=== PATIENT | male | born 1990 | race Caucasian/White ===

== ENCOUNTER 2019-07-16 01:08 | Emergency (ER) | payer BC ==
[~2019-07-16] VITALS: Ht 200.7 cm; Wt 81.6 kg
[2019-07-16 01:19] VITALS: BP 123/70
--- NOTE | 2019-07-16 01:30 | NUR ---
BS-42. ER MADE AWARE. FOOD PROVIDED TO PT PER ER ORDER. ORANGE JUICE 240ML'S AND TUNA SANDWICH GIVEN TO PT.
[2019-07-16 01:55] LABS: BASOPHILS % (AUTO) 0.3 % (0.0-2.0); EOSINOPHILS % (AUTO) 0.3 % (0.0-6.0); HEMATOCRIT 42 % (39-51); HEMOGLOBIN 14.1 g/dL (13.5-17.5); LYMPHOCYTES % (AUTO) 21.3 % (20.0-44.0); MEAN CORPUSCULAR HGB CONC 34 g/dl (31.0-36.0); MEAN CORPUSCULAR VOLUME 91 fL (80-96); MONOCYTES # (AUTO) 1.4 /CMM (0.1-1.30); NEUTROPHILS # (AUTO) 9.4 /CMM (1.8-8.9); NEUTROPHILS % (AUTO) 68.1 % (43.0-81.0); PLATELET COUNT (AUTO) 378 /CMM (150-450); RED BLOOD CELL COUNT(AUTO) 4.63 MIL/uL (4.5-6.0); WHITE BLOOD COUNT (AUTO) 13.9 K/uL (4.3-11.0)
[2019-07-16 02:07] LABS: CALCIUM, SERUM 8.5 mg/dL (8.5-10.1)
--- NOTE | 2019-07-16 02:15 | NUR ---
BG 122. AWARE.
[2019-07-16] MEDS ORDERED: POTASSIUM CHLORIDE 20 MEQ TAB.PRT.SR PO ONE (02:16)
[2019-07-16] MEDS ORDERED: POTASSIUM CHLORIDE 10 MEQ TABLET.SA ONE (02:18)
[2019-07-16] MEDS: POTASSIUM CHLORIDE 20 MEQ TAB.PRT.SR PO ONE ×3 (02:25→02:37)
== END 2019-07-16 03:13 | disposition home or self-care (01) ==
LOC: ER 01:12
DX: E11.649 Type 2 diabetes mellitus with hypoglycemia without coma (principal); F17.200 Nicotine dependence, unspecified, uncomplicated
CPT/HCPCS: 36415; 80048-TC; 82962-TC; 85025-TC

== ENCOUNTER 2019-07-17 22:35 | Emergency (ER) | payer BC ==
[~2019-07-17] VITALS: Ht 200.7 cm; Wt 81.6 kg
--- NOTE | 2019-07-17 22:52 | NUR ---
PT BIBSELF. AAOX4. AMBULATORY. PT C/O FEELING WEAK AND MALNOURISHED. PER PATIENT "I LOST LIKE 50LBS IN THE LAST TWO WEEKS." BREATHING EVEN AND UNLABORED. PT DENIES PAIN. NO ACUTE DISTRESS NOTED.
[2019-07-17 23:31] LABS: CALCIUM, SERUM 8.7 mg/dL (8.5-10.1); POTASSIUM 4.1 mmol/L (3.5-5.1)
[2019-07-17 23:46] VITALS: BP 128/86
== END 2019-07-17 23:49 | disposition home or self-care (01) ==
LOC: ER 22:36
DX: T73.0XXA Starvation, initial encounter (principal); E86.0 Dehydration; E11.9 Type 2 diabetes mellitus without complications; F17.200 Nicotine dependence, unspecified, uncomplicated; Z59.0 Homelessness; X58.XXXA Exposure to other specified factors, initial encounter
CPT/HCPCS: 36415; 80048-TC; 82962-TC

== ENCOUNTER 2019-07-19 19:53 | Emergency (ER) | payer BC ==
[~2019-07-19] VITALS: Ht 200.7 cm; Wt 86.2 kg
--- NOTE | 2019-07-19 20:22 | NUR ---
BIB SELF FOR PRODUCTIVE COUGH STARTED THIS MORNING, TO ER BED 12, HOOKED TO MONITOR, AWAITING MD CAMACHO.
--- NOTE | 2019-07-19 20:30 | NUR ---
CRISTIANE HUITRON AT BEDSIDE
--- NOTE | 2019-07-19 21:46 | NUR ---
Patient given written and verbal discharge instructions. Patient refused to sign homeless waiver form. Patient does not want to leave emergency dept. Patient is ambulatory with steady gait. Refuses offer of longterm placement. Patient given list of available shelters in surrounding area. Patient states "I ill hang-out here and if you want, you can call the administrative support assoc for trespassing'. Called security for assistance.
--- NOTE | 2019-07-19 22:03 | NUR ---
CALLED [employer] FOR THIS PATIENT, DISPATCHING OFFICERS
--- NOTE | 2019-07-19 22:25 | NUR ---
[employer] AT BEDSIDE TO ESCORT PT OUT OF HOSPITAL PER PT REQUEST. PT AMBULATORY WITH STEADY GAIT. NO ACUTE DISTRESS NOTED AT THIS TIME. MEDCIALLY CLEARED FOR DISCHARGE, LEFT WITH DISCHARGE INSTRUCTIONS.
[2019-07-19 22:27] VITALS: BP 124/67
--- NOTE | 2019-07-19 22:27 | NUR ---
JUSTIN ASSISTED PATIENT OUT OF EMERGENCY DEPARTMENT. PATIENT LEFT CALMLY.
== END 2019-07-19 22:29 | disposition home or self-care (01) ==
LOC: ER 20:00
DX: J06.9 Acute upper respiratory infection, unspecified (principal); F17.200 Nicotine dependence, unspecified, uncomplicated; E11.9 Type 2 diabetes mellitus without complications; Z59.0 Homelessness
CPT/HCPCS: 71045-TC

== ENCOUNTER 2020-03-19 10:40 | Inpatient (IN) | payer BC, OTHER ==
[~2020-03-19] VITALS: Ht 188 cm; Wt 74.8 kg
--- NOTE | 2020-03-19 10:40 | NUR ---
pt bib self c/o Nausea and vomiting x 3 days, pt is aaox4, not in respiratory distress, hooked to monitor, kept rested and comfortable, will continue to monitor.
--- NOTE | 2020-03-19 11:00 | NUR ---
iv line established blood drawn and sent to lab.
--- NOTE | 2020-03-19 11:10 | NUR ---
at bedside for eval.
[2020-03-19] MEDS ORDERED: MAG HYDROX/AL HYDROX/SIMETH 30 ML UDC ONE (11:17)
[2020-03-19] MEDS ORDERED: KETOROLAC TROMETHAMINE 15 MG/ML VIAL ONE (11:17)
[2020-03-19] MEDS ORDERED: LIDOCAINE VISCOUS 2% UD 15 ML UDC ONE (11:17)
[2020-03-19] MEDS ORDERED: ONDANSETRON HCL/PF 4 MG/2 ML VIAL ONE ×2 (11:17→12:11)
[2020-03-19 11:18] LABS: BASOPHILS # (AUTO) 0.2 /CMM (0.0-0.2); BASOPHILS % (AUTO) 0.9 % (0.0-2.0); HEMATOCRIT 56 % (39-51); HEMOGLOBIN 18.9 g/dL (13.5-17.5); LYMPHOCYTES # (AUTO) 1.7 /CMM (0.8-4.8); LYMPHOCYTES % (AUTO) 6.8 % (20.0-44.0); MEAN CORPUSCULAR HGB CONC 34 g/dl (31.0-36.0); MEAN CORPUSCULAR VOLUME 90 fL (80-96); MONOCYTES # (AUTO) 1.1 /CMM (0.1-1.30); MONOCYTES % (AUTO) 4.5 % (2.0-12.0); NEUTROPHILS # (AUTO) 21.4 /CMM (1.8-8.9); NEUTROPHILS % (AUTO) 87.8 % (43.0-81.0); PLATELET COUNT (AUTO) 486 /CMM (150-450); RED BLOOD CELL COUNT(AUTO) 6.29 MIL/uL (4.5-6.0); WHITE BLOOD COUNT (AUTO) 24.4 K/uL (4.3-11.0)
--- NOTE | 2020-03-19 11:24 | NUR ---
urinal given but unabale to provide urine specimen this time.
[2020-03-19] MEDS ORDERED: KETOROLAC TROMETHAMINE INJ 30 MG/ML VIAL IV ONE (11:30)
[2020-03-19] MEDS ORDERED: ONDANSETRON HCL/PF 4 MG/2 ML VIAL IVP ONE (11:30)
[2020-03-19] MEDS ORDERED: LIDOCAINE VISCOUS 2% UD 15 ML UDC MM ONE (11:30)
[2020-03-19] MEDS ORDERED: MAG HYDROX/AL HYDROX/SIMETH 30 ML UDC PO ONE (11:30)
[2020-03-19] MEDS ORDERED: IV NS 0.9% 1,000 ML BAG IV ONE ×2 (11:30→12:00)
[2020-03-19 11:32] LABS: ALBUMIN 4.7 g/dL (3.4-5.0); BILIRUBIN,DIRECT 0.2 mg/dL (0.0-0.2); BILIRUBIN,TOTAL 1.1 mg/dL (0.2-1.0); CALCIUM, SERUM 10.4 mg/dL (8.5-10.1); CREATININE 2.2 mg/dL (0.6-1.3); TOTAL PROTEIN, SERUM 8.6 g/dL (6.4-8.2)
[2020-03-19] MEDS ORDERED: INSULIN ASPART/LISPRO 100 UNIT/ML CARTRIDGE SQ STA (11:38)
[2020-03-19] MEDS ORDERED: INSU100I4 SQ (12:10)
--- NOTE | 2020-03-19 12:19 | NUR ---
CALLED [facility], PAGED DEISY PENALOZA
[2020-03-19] MEDS ORDERED: ONDANSETRON HCL/PF 4 MG/2 ML VIAL IV ONE (12:30)
--- NOTE | 2020-03-19 13:01 | NUR ---
report given to ALEX tejada for kofi.
--- NOTE | 2020-03-19 13:15 | NUR ---
MS/RN NOTES Received patient in bed from ED nurse, A&O x3, stating complaints of nausea. Patient requests for IV fluids and an antiemetic medication. Notified Dr. Singh, states he will put in orders. Patient refused to be assessed at this time, patient states he just wants to rest. Fall precautions maintained. Will continue to monitor for any changes in condition.
[2020-03-19] MEDS ORDERED: ACETAMINOPHEN 325 MG TABLET PO PRN (14:00)
[2020-03-19] MEDS ORDERED: HYDROCODONE/APAP 5/325MG 1 EACH TABLET PO PRN (14:00)
[2020-03-19] MEDS ORDERED: Z GUARD REMEDY 2 OZ OINT TP PRN (14:00)
[2020-03-19] MEDS ORDERED: DEXTROSE 50%-WATER 50 ML DISP.SYRIN IV PRN (14:00)
[2020-03-19] MEDS ORDERED: ZOLPIDEM TARTRATE 5 MG TABLET PO PRN (14:00)
[2020-03-19] MEDS: ENOXAPARIN SODIUM 40 MG/0.4 ML DISP.SYRIN SQ SCH (14:48)
[2020-03-19] MEDS: BLOOD SUGAR DIAGNOSTIC 1 EACH STRIP IN SCH ×3 (14:48→22:06)
[2020-03-19] MEDS: INSULIN REGULAR, HUMAN 100 UNIT/ML 3 ML VIAL SQ PRN ×2 (14:51→22:12)
[2020-03-19] MEDS: IV NS 0.9% 1,000 ML IV PRN ×2 (14:52→21:35)
[2020-03-19 16:00] VITALS: BP 128/69
--- NOTE | 2020-03-19 16:58 | NUR ---
MS/RN NOTES Notified Dr. Singh of duplicate diet orders of CCHO and full liquids. Patient has not complained of nausea or vomiting since transfer from ED. Doctor said to continue CCHO and discontinue full liquids.
--- NOTE | 2020-03-19 18:00 | NUR ---
MS/RN NOTES Patient refused to answer most of admission questions, also does not want to have me take pictures of skin. Patient states "my skin is okay." Patient had 1 episode of clear emesis, small amount noted. Reglan given at 1814. Will continue to monitor patient for any changes in condition.
[2020-03-19] MEDS: ONDANSETRON HCL/PF 4 MG/2 ML VIAL IVP PRN ×2 (18:14→22:14)
--- NOTE | 2020-03-19 18:42 | NUR ---
MS/RN NOTES Patient in bed, A&O x 4. Still feeling nauseous. Patient had 1 episode of clear emesis this afternoon, small amount noted. Given zofran at 1814. Refused to take photos or answer questions regarding admission admission, patient just wants to "rest and left alone." IV access noted on the R AC #18, patent and intact, infusing NS @125 ml/hr. Breathing even and non-labored on RA. No respiratory or cardiac distress noted. Sensation from all peripheral extremities intact. Fall precautions maintained. Will endorse to night shift supervisor nurse.
--- NOTE | 2020-03-19 19:10 | NUR ---
RN MS OPENING NOTES RECEIVED PATIENT IN BED SLEEPING EASILY AROUSABLE, RESPIRATIONS EVEN AND UNLABORED WITH EQUAL RISE AND FALL OF CHEST, DENIES ANY PAIN OR DISCOMFORT AT THIS TIME, IV SITE TO RIGHT AC #18G INTACT AND PATENT, NO REDNESS, NO INFILTRATION PRESENT, ORIENTED TO STAFF AND CALL LIGHT AND KEPT WITHIN REACH, ALL NEEDS ATTENDED AT THIS TIME, WILL CONTINUE TO MONITOR AND ATTEND TO NEEDS, REMAINS COMFORTABLE.
[2020-03-19 20:00] VITALS: BP 129/60
[2020-03-19 20:20] VITALS: BP 129/60
[2020-03-19] MEDS: INSULIN GLARGINE, 100 UNIT/ML CARTRIDGE SQ SCH (22:08)
--- NOTE | 2020-03-19 22:14 | NUR ---
rn ms notes patient is nauseous requested for zofran, prn given as ordered, will continue to monitor for effectiveness.
--- NOTE | 2020-03-19 23:30 | NUR ---
rn ms notes patient complained of pain 6/10 generalized pain norco offered patient agreed. norco prn given as ordered will continue to monitor for effectiveness.
--- NOTE | 2020-03-19 23:39 | NUR ---
rn ms notes per patient vomited norco tablet, states "unable to hold anything in no more pills." hospitalist made aware requested for iv pain medication , no new orders received, patient made aware.
[2020-03-20] MEDS: BLOOD SUGAR DIAGNOSTIC 1 EACH STRIP IN SCH ×6 (01:37→21:23)
[2020-03-20] MEDS: INSULIN REGULAR, HUMAN 100 UNIT/ML 3 ML VIAL SQ PRN ×4 (01:40→21:23)
[2020-03-20] MEDS: ONDANSETRON HCL/PF 4 MG/2 ML VIAL IVP PRN ×2 (05:10→15:15)
--- NOTE | 2020-03-20 05:10 | NUR ---
rn ms notes patient is nauseous requested for zofran, prn given as ordered, will continue to monitor for effectiveness.
[2020-03-20] MEDS: IV NS 0.9% 1,000 ML IV PRN (05:14)
--- NOTE | 2020-03-20 06:36 | NUR ---
RN MS CLOSING NOTES PATIENT IN BED SLEEPING EASILY AROUSABLE, RESPIRATIONS EVEN AND UNLABORED WITH EQUAL RISE AND FALL OF CHEST, DENIES ANY PAIN OR DISCOMFORT AT THIS TIME, IV SITE TO RIGHT AC #18G INTACT AND PATENT, NO REDNESS, NO INFILTRATION PRESENT, IVF RUNNING ORDERED, ZOFRAN PRN EFFECTIVE, CALL LIGHT KEPT WITHIN REACH, ALL NEEDS ATTENDED AT THIS TIME, WILL CONTINUE TO MONITOR AND ATTEND TO NEEDS, REMAINS COMFORTABLE AND WILL ENDORSE TO NEXT SHIFT, HAD FLUIDS AND ICE CHIPS THROUGHOUT THE SHIFT.
[2020-03-20 06:45] LABS: BASOPHILS % (AUTO) 0.2 % (0.0-2.0); EOSINOPHILS % (AUTO) 0.2 % (0.0-6.0); HEMATOCRIT 45 % (39-51); HEMOGLOBIN 15.1 g/dL (13.5-17.5); LYMPHOCYTES # (AUTO) 2.5 /CMM (0.8-4.8); LYMPHOCYTES % (AUTO) 16.3 % (20.0-44.0); MEAN CORPUSCULAR HGB CONC 34 g/dl (31.0-36.0); MEAN CORPUSCULAR VOLUME 89 fL (80-96); MONOCYTES # (AUTO) 1.2 /CMM (0.1-1.30); MONOCYTES % (AUTO) 7.9 % (2.0-12.0); NEUTROPHILS # (AUTO) 11.7 /CMM (1.8-8.9); NEUTROPHILS % (AUTO) 75.4 % (43.0-81.0); PLATELET COUNT (AUTO) 338 /CMM (150-450); RED BLOOD CELL COUNT(AUTO) 5.04 MIL/uL (4.5-6.0); WHITE BLOOD COUNT (AUTO) 15.4 K/uL (4.3-11.0)
[2020-03-20 06:56] LABS: ALBUMIN 3.1 g/dL (3.4-5.0); CALCIUM, SERUM 8.3 mg/dL (8.5-10.1); CREATININE 1.4 mg/dL (0.6-1.3); MAGNESIUM 1.7 mg/dL (1.8-2.4); PHOSPHORUS 3.6 mg/dL (2.5-4.9)
[2020-03-20 07:05] LABS: THYROID STIMULATING HORMONE 0.491 uIU/mL (0.358-3.74)
[2020-03-20 07:14] LABS: POTASSIUM 2.5 mmol/L (3.5-5.1)
[2020-03-20] MEDS: PANTOPRAZOLE 40 MG TABLET.DR PO SCH (07:30)
[2020-03-20 08:00] VITALS: BP 133/75
--- NOTE | 2020-03-20 08:00 | NUR ---
MS/RN Opening Note Received patient in bed sleeping, does no appears pain or discomfort at this time. Skin is warm to touch, intact IV site running NS at 125 ml.hr. Respiratory even and unlabored in room air. Keep bed in lock with elevated HOB for secure airway, call light within reach, will continue to monitor.
[2020-03-20] MEDS: ENOXAPARIN SODIUM 40 MG/0.4 ML DISP.SYRIN SQ SCH (08:30)
[2020-03-20] MEDS: Magnesium 1GM/D5W 100ML PREMIX 100 ML IV SCH ×2 (10:24→10:55)
--- NOTE | 2020-03-20 11:30 | NUR ---
Urine sample collected, called lab to ready machine operator hop picker.
[2020-03-20] MEDS ORDERED: Potassium Chloride 40 MEQ in IV NS 0.9% 1,000 ML IV ONE ×2 (12:30)
[2020-03-20] MEDS ORDERED: POTASSIUM CHLORIDE 20 MEQ TAB.PRT.SR PO SCH ×2 (13:00)
--- NOTE | 2020-03-20 13:13 | NUR ---
Patient refused PO potassium med and does not [place] tray, will hold insulin.
[2020-03-20] MEDS: Potassium Chloride 10 MEQ, LIDOCAINE HCL/PF 1% 1 ML in IV NS 0.9% 50 ML IV SCH ×5 (15:17→18:01)
[2020-03-20 16:00] VITALS: BP 130/61
[2020-03-20] MEDS ORDERED: diphenhydrAMINE HCL 50 MG/ML VIAL IV PRN (17:00)
[2020-03-20] MEDS ORDERED: diphenhydrAMINE HCL 50 MG/ML VIAL IV ONE (17:00)
[2020-03-20] MEDS: METOCLOPRAMIDE HCL 10 MG/2 ML VIAL IV SCH ×2 (17:14→22:02)
--- NOTE | 2020-03-20 18:45 | NUR ---
MS/RN Closing note Patient in bed, sleeping comfortably, no further nausea/vomiting. Skin is warm to touch, kept clean/dry,BS intact IV site. Respiratory even and unlabored in room air. Keep bed in lock with elevated HOB for secure airway and aspiration precaution. Call light within reach, will endorse manufacturing shift supervisor.
[2020-03-20 20:00] VITALS: BP 124/66
[2020-03-20 20:08] VITALS: BP 124/66
[2020-03-20] MEDS: INSULIN GLARGINE, 100 UNIT/ML CARTRIDGE SQ SCH (22:30)
--- NOTE | 2020-03-20 22:32 | NUR ---
rn ms notes accucheck noted 129 patient is not eating, admitted for DM UNCONTROLLED notified , whom said continue to give lantus . lantus given as ordered.
--- NOTE | 2020-03-20 23:53 | NUR ---
RN MS NOTES PATIENT REFUSED SKIN ASSESSMENT STATES " I DONT HAVE WOUNDS".
[2020-03-21] MEDS: BLOOD SUGAR DIAGNOSTIC 1 EACH STRIP IN SCH ×5 (01:02→16:45)
[2020-03-21] MEDS: INSULIN REGULAR, HUMAN 100 UNIT/ML 3 ML VIAL SQ PRN ×4 (01:03→17:16)
[2020-03-21] MEDS: METOCLOPRAMIDE HCL 10 MG/2 ML VIAL IV SCH ×3 (04:15→17:28)
--- NOTE | 2020-03-21 06:19 | NUR ---
RN MS CLOSING NOTES PATIENT IN BED SLEEPING EASILY AROUSABLE, RESPIRATIONS EVEN AND UNLABORED WITH EQUAL RISE AND FALL OF CHEST, DENIES ANY PAIN OR DISCOMFORT AT THIS TIME, IV SITE TO RIGHT AC #18G INTACT AND PATENT, NO REDNESS, NO INFILTRATION PRESENT, CALL LIGHT KEPT WITHIN REACH, ALL NEEDS ATTENDED AT THIS TIME, WILL CONTINUE TO MONITOR AND ATTEND TO NEEDS, REMAINS COMFORTABLE. PATIENT HAD X1 BM.
[2020-03-21 07:28] LABS: BASOPHILS % (AUTO) 0.3 % (0.0-2.0); EOSINOPHILS % (AUTO) 0.1 % (0.0-6.0); HEMATOCRIT 45 % (39-51); HEMOGLOBIN 15.2 g/dL (13.5-17.5); LYMPHOCYTES # (AUTO) 1.8 /CMM (0.8-4.8); LYMPHOCYTES % (AUTO) 14.8 % (20.0-44.0); MEAN CORPUSCULAR HGB CONC 34 g/dl (31.0-36.0); MEAN CORPUSCULAR VOLUME 90 fL (80-96); MONOCYTES # (AUTO) 0.8 /CMM (0.1-1.30); MONOCYTES % (AUTO) 6.7 % (2.0-12.0); NEUTROPHILS # (AUTO) 9.5 /CMM (1.8-8.9); NEUTROPHILS % (AUTO) 78.1 % (43.0-81.0); PLATELET COUNT (AUTO) 317 /CMM (150-450); RED BLOOD CELL COUNT(AUTO) 5.02 MIL/uL (4.5-6.0); WHITE BLOOD COUNT (AUTO) 12.2 K/uL (4.3-11.0)
[2020-03-21] MEDS: PANTOPRAZOLE 40 MG TABLET.DR PO SCH (07:30)
[2020-03-21 07:37] LABS: CALCIUM, SERUM 7.8 mg/dL (8.5-10.1); CREATININE 1.1 mg/dL (0.6-1.3); MAGNESIUM 1.8 mg/dL (1.8-2.4); PHOSPHORUS 2.6 mg/dL (2.5-4.9); POTASSIUM 3.6 mmol/L (3.5-5.1)
[2020-03-21 08:00] VITALS: BP 113/65
--- NOTE | 2020-03-21 08:00 | NUR ---
MS/RN Opening note Received patient in bed, AO x 4, able to responds all stimuli. Pt refused morning med/protonic due to nauseate. Skin is warm to touch, keep clean/dry, intact IV site site. Respiratory even and unlabored in room air. keep bed in lock with elevated HOB for secure airway and aspiration repercussion. Call light within reach, will continue to monitor.
[2020-03-21] MEDS: ENOXAPARIN SODIUM 40 MG/0.4 ML DISP.SYRIN SQ SCH (08:15)
--- NOTE | 2020-03-21 13:11 | NUR ---
Obtained sign of consent for NM Gastric Empty study.
--- NOTE | 2020-03-21 18:58 | NUR ---
RN MS CLOSING NOTES PATIENT IN BED RESTING COMFORTABLE, RESPIRATIONS EVEN AND UNLABORED , DENIES ANY PAIN OR DISCOMFORT AT THIS TIME, IV SITE TO RIGHT AC #18G INTACT AND PATENT, NO REDNESS, NO INFILTRATION PRESENT NM GASTRIC EMPTY STUDY DONE ACCU CHECK @ 1700 [id number] ,4 UNITS OF REGULAR INSULIN PER SLIDING SCALE. CALL LIGHT KEPT WITHIN REACH, ALL NEEDS ATTENDED AT THIS TIME, WILL CONTINUE TO MONITOR AND ATTEND TO NEEDS, REMAINS COMFORTABLE.
--- NOTE | 2020-03-21 19:00 | NUR ---
MS/RN OPENING NOTES: RECEIVED PT A/OX4. STABLE, IN BED RESTING. VERBALLY RESPONSIVE AND ABLE TO MAKE NEEDS KNOWN. AMBULATORY. ON ROOM AIR, SATURATING WELL. BREATHING EVEN AND UNLABORED. NO C/O PAIN AT THIS TIME. SCHEDULED TO BE TRANSFERRED TO [facility] FOR INSURANCE REASONS. DC PAPERS TO BE SIGNED. PER RN DAY SHIFT VINCE, PT IS TO BE PICKED UP BY AMBULANCE AT 8PM. WILL CONTINUE TO MONITOR ACCORDINGLY.
[2020-03-21 20:00] VITALS: BP 133/75
--- NOTE | 2020-03-21 20:35 | NUR ---
MS/CRANBERRY SORTER NOTES: PT. IS A/OX4 VERBALLY RESPONSIVE AND ABLE TO MAKE NEEDS KNOWN, STABLE. VSS AND WNL. BP: 133/75 HR: 75 RR:18 TEMP:98.7 ON ROOM AIR SATURATING AT 100%. REPORT GIVEN TO ALEX PEDERSEN FROM [facility] VIA PHONE CALL AT 2029. 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 PT DC PAPERS SIGNED AND GIVEN TO PATIENT. IV SITE ON THE RIGHT AC #18G SL. INTACT AND PATENT. PT LEFT UNIT IN STABLE CONDITION VIA GURNEY AT 2034.
== END 2020-03-21 20:35 | disposition short-term general hospital (02) | DRG 637 ==
LOC: ER 10:40 → TELE 13:19 → MED 14:08
PROVIDERS: ADMIT Nurse Practitioner Acute Care; ATTEND Nurse Practitioner Acute Care
DX: E11.65 Type 2 diabetes mellitus with hyperglycemia (principal); N17.0 Acute kidney failure with tubular necrosis; E87.1 Hypo-osmolality and hyponatremia; E83.52 Hypercalcemia; D72.828 Other elevated white blood cell count; E86.1 Hypovolemia; E87.6 Hypokalemia; E80.6 Other disorders of bilirubin metabolism; Z59.0 Homelessness; Z79.4 Long term (current) use of insulin; E11.43 Type 2 diabetes mellitus with diabetic autonomic (poly)neuropathy; K31.84 Gastroparesis; D75.1 Secondary polycythemia; Z91.19 Patient's noncompliance with other medical treatment and regimen
CPT/HCPCS: 36415; 80048-TC; 80053-TC; 80061-TC; 80076-TC; 80305; 82962-TC; 83540-TC; 83690-TC; 83735-TC; 84100-TC; 84443-TC; 85025-TC; 87081-TC; A4216; A9541; G0378; J1200; J1650; J1815; J1885; J2405; J2765; J3475; J3480; J3490; J7030

== ENCOUNTER 2022-06-15 01:20 | Emergency (ER) | payer OTHER ==
[~2022-06-15] VITALS: Ht 200.7 cm; Wt 77.1 kg
[~2022-06-15 01:20] MED LIST: INSU100I4 SQ
[2022-06-15] MEDS ORDERED: IV NS 0.9% 1,000 ML BAG IV ONE ×2 (01:30→02:30)
[2022-06-15] MEDS ORDERED: ONDANSETRON HCL/PF 4 MG/2 ML VIAL IVP ONE (01:30)
[2022-06-15] MEDS ORDERED: ONDANSETRON HCL/PF 4 MG/2 ML VIAL ONE (01:37)
--- NOTE | 2022-06-15 01:45 | NUR ---
PATIENT [id number] FROM HOME C/O VOMITING FOR THE PAST FEW DAYS. PATIENT IS A/O X 4, RR EVEN AND UNLABORED NO SOB NOTED. PATIENT CONNECTED TO [facility]. VSS
--- NOTE | 2022-06-15 02:03 | NUR ---
BLOOD WORK COLLECTED SENT TO LAB
--- NOTE | 2022-06-15 02:05 | NUR ---
UNABLE TO PROVIDE URINE
[2022-06-15 02:22] LABS: BASOPHILS # (AUTO) 0.1 K/uL (0.0-0.2); BASOPHILS % (AUTO) 0.4 % (0.0-2.0); EOSINOPHILS % (AUTO) 0.1 % (0.0-6.0); HEMATOCRIT 52 % (39-51); HEMOGLOBIN 17.5 g/dL (13.5-17.5); LYMPHOCYTES # (AUTO) 2.2 K/uL (0.8-4.8); LYMPHOCYTES % (AUTO) 11.2 % (20.0-44.0); MEAN CORPUSCULAR HGB CONC 34 g/dl (31.0-36.0); MEAN CORPUSCULAR VOLUME 87 fL (80-96); MONOCYTES # (AUTO) 1.2 K/uL (0.1-1.30); MONOCYTES % (AUTO) 6.3 % (2.0-12.0); NEUTROPHILS # (AUTO) 16.1 K/uL (1.8-8.9); PLATELET COUNT (AUTO) 448 K/uL (150-450); RED BLOOD CELL COUNT(AUTO) 5.98 MIL/uL (4.5-6.0); WHITE BLOOD COUNT (AUTO) 19.7 K/uL (4.3-11.0)
[2022-06-15 02:25] LABS: CALCIUM, SERUM 10.2 mg/dL (8.5-10.1); CREATININE 1.4 mg/dL (0.6-1.3); POTASSIUM 3.4 mmol/L (3.5-5.1)
[2022-06-15] MEDS ORDERED: FAMOTIDINE/PF INJ 20 MG/2 ML VIAL IV ONE ×3 (02:28→02:36)
[2022-06-15] MEDS ORDERED: MORPHINE SULFATE INJ 4 MG/ML DISP.SYRIN ONE ×2 (02:28→02:35)
[2022-06-15 02:30] LABS: ALBUMIN 4.9 g/dL (3.4-5.0); BILIRUBIN,DIRECT 0.2 mg/dL (0.0-0.2); TOTAL PROTEIN, SERUM 8.6 g/dL (6.4-8.2)
[2022-06-15] MEDS ORDERED: MORPHINE SULFATE INJ 2 MG/ML DISP.SYRIN IV ONE (02:30)
[2022-06-15 02:46] LABS: ABG BASE EXCESS 9.9 mmol/L; ABG PCO2 36.2 mmHg (35.0-45.0); ABG PO2 69.9 mmHg (75.0-100.0); COHb 0.3 % (0.5-1.5); MetHb 0.3 % (0.0-1.5); O2Hb 94.5 % (94.0-97.0); SITE, ABG Right Radial; VENT MODE, BG RA
--- NOTE | 2022-06-15 02:47 | NUR ---
RT abg result given to dr steiner
--- NOTE | 2022-06-15 03:02 | NUR ---
LACTIC ACID 2.7
--- NOTE | 2022-06-15 03:29 | NUR ---
AMIRAH COLLECTED AND SENT TO LAB
[2022-06-15 04:31] LABS: BILIRUBIN,URINE NEGATIVE (NEGATIVE); COLOR,URINE YELLOW (YELLOW); LEUKOCYTE ESTERASE ,URINE NEGATIVE (NEGATIVE); NITRITE, URINE NEGATIVE (NEGATIVE); PROTEIN,URINE 100 mg/dl (NEGATIVE); UGLUCOSE NEGATIVE (NEGATIVE)
[2022-06-15 04:32] LABS: PH,URINE >9.0 (5.0-8.0)
--- NOTE | 2022-06-15 04:51 | NUR ---
called [facility] for peer to peer
--- NOTE | 2022-06-15 05:10 | NUR ---
DR FLOWERS ON PHONE WITH WINSOME RODRÍGUEZ
[2022-06-15] MEDS ORDERED: PIPERACILLIN /TAZOBACTAM 3.375 G VIAL IV ONE (05:13)
--- NOTE | 2022-06-15 05:16 | NUR ---
PT IS GOING TO BE TRANSFERRED TO A [facility], ACCEPTED BY DR. ORTIZ. TRANSFER INFO TO FOLLOW.
[2022-06-15] MEDS ORDERED: IV D5/0.45 NACL 1,000 ML IV ONE (05:30)
[2022-06-15] MEDS ORDERED: PIPERACILLIN /TAZOBACTAM 3.375 G in IV D5W 50 ML IV ONE (05:30)
--- NOTE | 2022-06-15 06:19 | NUR ---
repeat lactic acid reported to [facility].
--- NOTE | 2022-06-15 06:37 | NUR ---
Pt is going to [facility] Under the care of Dr. Bishop. call [phone] fore report.
--- NOTE | 2022-06-15 06:39 | NUR ---
[facility] transfer via [facility]. ETA [id number]
--- NOTE | 2022-06-15 06:47 | NUR ---
REPORT GIVEN TO DRE AT [facility]
[2022-06-15 06:57] VITALS: BP 124/81
--- NOTE | 2022-06-15 07:17 | NUR ---
REPORT GIVEN TO JUAN DANIEL BARRIOS WITH [facility]. PT CHART, TRANSFER FORM, AND CD PROVIDED.
--- NOTE | 2022-06-15 07:24 | NUR ---
PT TRANSPORTED TO [facility]IA [facility] IN STABLE CONDITION
== END 2022-06-15 07:27 | disposition short-term general hospital (02) ==
LOC: ER 01:30
DX: K52.9 Noninfective gastroenteritis and colitis, unspecified (principal); E87.2 Acidosis; E11.9 Type 2 diabetes mellitus without complications; Z79.4 Long term (current) use of insulin; F12.90 Cannabis use, unspecified, uncomplicated; Z20.822 Contact with and (suspected) exposure to COVID-19
CPT/HCPCS: 99285; 74176; 96365; 96375; 96361; 87426; 82803; 85025; 80048; 87040 ×2; 83605 ×2; 83690; 80076; 36415; 36600 ×2; 80307; 81003; J2270 ×2; J3490 ×2; J2405; J2543; J7060; J7030; C9803